=== PATIENT | female | born 1985 | race Caucasian/White ===

== ENCOUNTER → 2019-04-11 | Outpatient (CLI) | payer BC ==
[2019-04-11 18:50] LABS: FREE T4 0.79 NG/DL (0.76-1.46)
[2019-04-11 22:42] LABS: CHLAMYDIA DNA AMPLIFICATION NEGATIVE (NEGATIVE); GC DNA AMPLIFICATION NEGATIVE (NEGATIVE)
[2019-04-12 11:26] LABS: HEPATITIS C VIRUS ABY INDEX 0.1 INDEX (<0.8); HIV 1&2 SCREEN CENTAUR NEGATIVE (NEGATIVE)
== END ==
LOC: M SMT 15:45
PROVIDERS: ATTEND Advanced Practice Midwife
DX: Z36.89 Encounter for other specified antenatal screening (principal); Z3A.00 Weeks of gestation of pregnancy not specified

== ENCOUNTER → 2019-05-16 | Outpatient (CLI) | payer BC ==
--- NOTE | 2019-05-16 17:29 | REP ---
REASON: Assess for growth. I have no priors for comparison. Multiple ultrasonographic images of the gravid uterus show a single living intrauterine gestation in the cephalic presentation. Doppler interrogation of the heart shows a heart rate of 161 beats per minute. The placenta is anterior and not low lying. The subjective amniotic fluid volume is within normal limits. Doppler interrogation of the umbilical artery shows an AB ratio of 2.33. This is within the normal range. The cervix measures 3.9 cm in length and is closed. Evaluation of the maternal adnexal space showed no abnormalities. The placenta is seen to be anterior and not low lying. BPD 8.7 cm 35 weeks 1 day. HC 31.3 cm 35 weeks 0 days. AC 30.8 cm 34 weeks 5 days. FL 6.6 cm 34 weeks 0 days. The estimated weight is 2472 grams which is at the 52nd percentile for a 34 week 2 days gestational age. The calculated amniotic fluid index is 12.0 with an expected range 8.0 to 24.8. The fetus was too large for a complete anatomical screen. Limited evaluation of the fetus for anatomy showed spine, kidneys, urinary bladder, three vessel umbilical cord, cord insertion, stomach, four chamber heart and intracranial contents to have normal appearance. facial features particularly the upper lip was not adequately identified. The right ventricular outflow track could not be adequately identified. The upper and lower extremities could not be confirmed as normal. IMPRESSION:Single living intrauterine gestation as described above with an estimated gestational age of 34 weeks 4 days via composite criteria and an estimated date of delivery of 06/23/2019. The anatomical screen could not be completed due to the large gestational age, however, structures seen within normal limits are discussed above. Electronically Signed by Ernie Vicente DO 05/16/2019 06:02 P
== END ==
LOC: M RAD 14:20
PROVIDERS: ATTEND Advanced Practice Midwife
DX: O99.13 Other diseases of the blood and blood-forming organs and certain disorders involving the immune mechanism complicating the puerperium (principal); Z36.89 Encounter for other specified antenatal screening; D68.61 Antiphospholipid syndrome; Z3A.34 34 weeks gestation of pregnancy

== ENCOUNTER → 2019-05-20 | Outpatient (REF) | payer BC | LOC: M LAB REF 18:15 | PROVIDERS: ATTEND Advanced Practice Midwife | DX: O99.113 Other diseases of the blood and blood-forming organs and certain disorders involving the immune mechanism complicating pregnancy, third trimester (principal); Z3A.00 Weeks of gestation of pregnancy not specified ==

== ENCOUNTER 2019-06-19 05:30 | Inpatient (IN) | payer BC ==
[2019-06-19] VITALS (8 sets, daily range): BP systolic 95–120; BP diastolic 51–75
[~2019-06-19] VITALS: Ht 170.2 cm; Wt 102.0 kg
[~2019-06-19 05:30] MED LIST: HEPA100I26 SQ; HEPA1INJ8 SC; IRON325T2 PO; PREN200C PO; VITA250T18 PO; [UNRECOGNIZED DRUG - CODE] SQ
[2019-06-19] MEDS ORDERED: LR 800 ML IV ONE (05:45)
[2019-06-19] MEDS ORDERED: BICITRA 30ML SOLN UDC PO ONE (05:45)
[2019-06-19 06:14] LABS: MEAN CORPUSCULAR HEMOGLOBIN 32.4 pg (27.0-33.0); MEAN CORPUSCULAR HGB CONC 34.3 g/dl (32.0-36.5); MEAN CORPUSCULAR VOLUME 94.6 fl (80.0-96.0); PLATELET COUNT, AUTOMATED 168 10^3/uL (150-450); WHITE BLOOD COUNT 8.8 10^3/uL (4.0-10.0)
[2019-06-19] MEDS ORDERED: LR 1,000 ML IV SCH ×2 (06:15→10:00)
[2019-06-19] MEDS ORDERED: NALOXONE INJ 0.4 MG/1 ML VIAL (J2310) IV PRN ×2 (07:45)
[2019-06-19] MEDS ORDERED: METOCLOPRAMIDE INJ 10MG/2ML VIAL (J2765) IV PRN (07:45)
[2019-06-19] MEDS ORDERED: NALBUPHINE HCL 10 MG/ML AMP (J2300) IV PRN (07:45)
[2019-06-19] MEDS ORDERED: diphenhydrAMINE INJ 50MG/ML VIAL (J1200) IV PRN (07:45)
[2019-06-19] MEDS ORDERED: ONDANSETRON 4MG/2ML VIAL (J2405) IV PRN ×3 (07:45→09:30)
[2019-06-19] MEDS ORDERED: OXYTOCIN 30 UNITS IN 0.9% NaCl 500ML IV BAG (J2590) As Ordered ONE (08:55)
[2019-06-19] MEDS ORDERED: MEASLES,MUMPS,RUBELLA VACCINE INJ (MMR-II) (90707) SC SCH (09:00)
[2019-06-19] MEDS ORDERED: PERCOCET 5MG/325MG TAB PO PRN ×2 (09:00)
[2019-06-19] MEDS ORDERED: OXYTOCIN DRIP 30 UNITS in APPROPRIATE DILUENT 1 EA IV SCH (09:00)
[2019-06-19] MEDS: PRENATAL VITAMINS CHEWABLE TABLET PO SCH (09:00)
[2019-06-19] MEDS ORDERED: RHOGAM 300 MCG (1500 IU) INJ (J2790) IM SCH (09:00)
[2019-06-19] MEDS ORDERED: OXYC1TAB23 PO (09:26)
[2019-06-19] MEDS ORDERED: fentaNYL 100 MCG/2 ML INJECTION (J3010) IV PRN (09:30)
[2019-06-19] MEDS: KETOROLAC 30 MG/ML VIAL (J1885) IV SCH ×3 (09:37→22:31)
[2019-06-19] MEDS ORDERED: KETOROLAC 30 MG/ML VIAL (J1885) As Ordered ONE (09:37)
[2019-06-19] MEDS ORDERED: SLF 3 ML SYR IV PRN (16:45)
[2019-06-19] MEDS ORDERED: DOCUSATE SODIUM 100 MG CAP PO PRN (21:00)
[2019-06-19] MEDS: SLF 3 ML SYR IV SCH (22:32)
[2019-06-20 02:00] VITALS: BP 98/56
[2019-06-20 05:29] VITALS: BP 95/52
[2019-06-20] MEDS: SLF 3 ML SYR IV SCH (06:40)
[2019-06-20 07:02] LABS: HEMATOCRIT 22.3 % (36.0-47.0); MEAN CORPUSCULAR HEMOGLOBIN 33.3 pg (27.0-33.0); MEAN CORPUSCULAR HGB CONC 33.6 g/dl (32.0-36.5); MEAN CORPUSCULAR VOLUME 99.1 fl (80.0-96.0); PLATELET COUNT, AUTOMATED 155 10^3/uL (150-450); RED BLOOD COUNT 2.25 10^6/uL (4.00-5.40); WHITE BLOOD COUNT 13.2 10^3/uL (4.0-10.0)
[2019-06-20 07:07] LABS: HEMOGLOBIN 7.5 g/dl (12.0-15.5)
--- NOTE | 2019-06-20 07:43 | IPNPDOC ---
Text Note Date of Service The patient was seen on 06/20/19. NOTE Note POD#1 s/p scheduled PLTCS S: Pain well controlled, ambulating without difficulty, tolerating regular diet, voiding spontaneously, lochia decreasing/minimal. No headache, sob, chest pain, nausea/vomiting/fevers/chills. Some lightheadedness over night with ambulation. O: normal HR, afebrile, somewhat hypotensive at times ABD: soft, nontender, nondistended, fundus firm at U, dressing dry and intact Ext: no lower extremity edema bilaterally, negative Jaden's sign A/P: POD#1. Recovering well. Hemodynamically stable, afebrile, good pain control. Encourage PO fluid intake, warning signs of hypotension discussed. -Routine care -Anticipate d/c to home tomorrow. VS,Fishbone, I+O VS, Fishbone, I+O Laboratory Tests 06/20/19 06:46 Red Blood Count 2.25 L, Mean Corpuscular Volume 99.1 H, Mean Corpuscular Hemoglobin 33.3 H, Mean Corpuscular Hemoglobin Concent 33.6, Red Cell Distribution Width 14.2 Vital Signs Date Time Temp Pulse Resp B/P (MAP) Pulse Ox O2 Delivery O2 Flow Rate FiO2 06/20/19 05:29 98.6 97 18 95/52 (66) 06/19/19 22:16 98 I&O- Last 24 Hours up to 6 AM 06/20/19 05:59 Intake Total 5401 ml Output Total 2000 ml Balance 3401 ml GME ATTESTATION GME ATTESTATION My faculty preceptor for this patient encounter was physically present during the encounter and was fully available. All aspects of the patient interview, examination, medical decision making process, and medical care plan development were reviewed and approved by the faculty preceptor. The faculty preceptor is aware and concurs with the plan as stated in the body of this note and will attest to such by his/her cosignature. MIRA MISHRA DO Jun 20, 2019 07:42
--- NOTE | 2019-06-20 08:52 | RO ---
DATE OF PROCEDURE: 06/19/2019 PREPROCEDURE DIAGNOSIS: 39 weeks, prior section times one, undesired fertility. POSTPROCEDURE DIAGNOSIS: 39 weeks, prior section times one, undesired fertility. PROCEDURE: Repeat low transverse section and bilateral tubal ligation. SURGEON: Dr. Tavon Pérez ETCHER HAND: Ivette Curtis CNM ANESTHESIA: Spinal. ESTIMATED BLOOD LOSS: 600 mL. URINE OUTPUT: 500 mL. IV FLUIDS: 1700 mL lactated Ringer's. FINDINGS: 7 pound and 10 ounce or 3450 gram female infant, Apgars 8 and 9, vertex position. Normal uterus, fallopian tubes and ovaries. DESCRIPTION OF PROCEDURE: The patient was taken to the operating room where spinal anesthesia was induced. She was prepped and draped in sterile fashion in the supine position. A Gardiner catheter was placed. A Pfannenstiel skin incision was made with the scalpel and carried through to the fascia. The fascia was nicked and extended. The fascia was dissected off the rectus muscles. The peritoneal cavity was entered. A bladder flap was created. A curvilinear incision was made in the lower uterine segment until bulging membranes were noted. This was extended manually. Membranes were ruptured with clear fluid. The was delivered from the vertex position without difficulty. The cord was doubly clamped and cut. The infant was handed off to the awaiting nurses. The placenta was expressed. The uterus was cleared of clots and debris. The uterine incision was closed with #0 Vicryl in a running locked fashion. A second imbricating layer of #0 Vicryl was placed. Attention was turned to the fallopian tubes. The fallopian tubes were grasped at their mid portion with a Montague clamp. A window was created in the broad ligament. A free tie of #3-0 chromic suture was placed around a segment of tube on either side of the José clamp. A knuckle of tube was excised bilaterally. The peritoneum was with #2-0 Vicryl in a running fashion. The fascia was closed with #0 Vicryl in a running fashion. The deep layer was irrigated and closed with #3-0 chromic. The skin was closed with #4-0 Monocryl subcuticular sutures. Sponge, instrument and needle counts were correct. Ivette Curtis CNM, assisted throughout the procedure. She helped create all layers of the incision. She helped expel the fetus. She helped with the tubal ligation and closure of all subsequent layers.
[2019-06-20] MEDS ORDERED: INFLUENZA QUADRIVALENT PF VACCINE 0.5ML SYRINGE (90686) IM ONE (09:00)
[2019-06-20] MEDS ORDERED: ADACEL/BOOSTRIX VACCINE (DIPHTH/PERTUSS/ACELL/TETANUS)0.5ML SYR (90715) IM ONE (09:00)
[2019-06-20] MEDS: PRENATAL VITAMINS CHEWABLE TABLET PO SCH (09:23)
[2019-06-20 10:00] VITALS: BP 114/69
[2019-06-20] MEDS: IBUPROFEN 800 MG TAB PO SCH ×2 (11:04→19:21)
[2019-06-20 14:00] VITALS: BP 115/54
[2019-06-20 17:44] VITALS: BP 117/65
[2019-06-20 22:00] VITALS: BP 100/56
[2019-06-21 02:00] VITALS: BP 104/59
[2019-06-21] MEDS: IBUPROFEN 800 MG TAB PO SCH ×2 (03:00→10:50)
[2019-06-21 06:00] VITALS: BP 108/59
[2019-06-21] MEDS ORDERED: ENOX40IN3 SC (07:25)
[2019-06-21] MEDS: PRENATAL VITAMINS CHEWABLE TABLET PO SCH (09:00)
[2019-06-21] MEDS ORDERED: INFLUENZA QUADRIVALENT PF VACCINE 0.5ML SYRINGE (90686) IM ONE (11:00)
--- NOTE | 2019-06-21 18:05 | DSES ---
DATE OF ADMISSION: 06/19/2019 DATE OF DISCHARGE: 06/21/2019 DISCHARGE DIAGNOSIS: 1. Repeat low transverse section, satisfied parity. PROCEDURES PERFORMED WHILE IN THE HOSPITAL: 1. Repeat low transverse section. 2. Bilateral tubal ligation. 3. Spinal anesthesia. Mitzy is a 34-year-old G4 now para 3-1-0-4, who presented to labor and delivery at 39 +1 weeks estimated gestational age for repeat low transverse section and bilateral tubal ligation. She underwent an uncomplicated repeat low transverse section productive of a live born female , score 8 and 9. 7 pounds, 10 ounces or 3450 grams. Estimated blood loss 600 mL. She did well postoperatively; and by day #2, had met all discharge criteria. She was discharged home in stable condition. PHYSICAL EXAMINATION: On day of discharge, her vital signs were stable. She was afebrile. GENERAL APPEARANCE: Well appearing, no acute distress. ABDOMEN: Soft, appropriately tender fundus that is firm below the umbilicus. INCISION: Dressing is dry and intact. EXTREMITIES: Negative for calf tenderness. DISCHARGE INSTRUCTIONS: 1. She was instructed to remain on pelvic rest for 6 weeks. 2. To remove her dressing in 5-7 days. 3. Report severe pain, heavy vaginal bleeding, fever or incisional issues. DISCHARGE MEDICATIONS: - Percocet - Lovenox 40 mg subcutaneous daily - vitamin C. - vitamins. - iron. FOLLOWUP: [facility] in 2 weeks for incision check.
== END 2019-06-21 11:22 | disposition home or self-care (01) | DRG 540 ==
LOC: M LDI 05:30 → M OBS 10:59
PROVIDERS: ADMIT Specialist; ATTEND Specialist
PROC: 0UB70ZZ Excision of Bilateral Fallopian Tubes, Open Approach (ICD-10-PCS; 2019-06-19)
PROC: 10D00Z1 Extraction of Products of Conception, Low, Open Approach (ICD-10-PCS; principal; 2019-06-19 07:30)
DX: O34.211 Maternal care for low transverse scar from previous cesarean delivery (principal); Z3A.39 39 weeks gestation of pregnancy; Z37.0 Single live birth; Z30.2 Encounter for sterilization

== ENCOUNTER → 2019-08-24 | Outpatient (REF) | payer BC ==
[~2019-08-24] MED LIST changes: +ENOX40IN3 SC; +OXYC1TAB23 PO
== END ==
LOC: M LAB REF 10:17
PROVIDERS: ATTEND Physician Assistant
DX: N39.0 Urinary tract infection, site not specified (principal)

== ENCOUNTER → 2020-03-24 | Outpatient (REF) | payer OTHER | LOC: M PLALAB 11:38 | PROVIDERS: ATTEND Specialist | DX: O00.90 Unspecified ectopic pregnancy without intrauterine pregnancy (principal) ==

== ENCOUNTER → 2020-03-25 | Outpatient (CLI) | payer OTHER ==
--- NOTE | 2020-03-25 23:27 | REP ---
EMERGENCY FIRST TRIMESTER OBSTETRIC SONOGRAPHY: HISTORY: Rule out ectopic. Status post tubal. FINDINGS: Transabdominal and transvaginal scanning are performed. Uterine dimensions are enlarged at 11.4 x 7.1 x 8.6 cm. There are several uterine myometrial fibroids measuring 1.7, 0.8, and 1.5 cm in greatest diameter, respectively. There is an intrauterine gestational sac with mean sac size diameter of 6.9 mm. This corresponds with a 5-week 3-day gestational age estimate. There is a yolk sac but no embryonic pole. The right ovary has overall dimensions of 4.5 x 2.3 x 2.5 cm. There is a 2.2 x 1.6 x 1.8 cm hypoechoic area in the right ovary. No free fluid is seen. Left ovary measures 3.0 x 2.1 x 2.8 cm. Doppler flow is present in both ovaries. Resistive indices are 0.50 on the right and 0.70 on the left. IMPRESSION: 1. There is evidence of an intrauterine gestational sac containing a yolk sac but no embryonic pole, 5 weeks 3 days by mean sac size diameter. 2. There are several apparent uterine fibroids. These are small. 3. No free fluid is seen in the cul-de-sac. 4. There is a 2.2 cm hypoechoic area in the right ovary, which may be hemorrhagic corpus luteum. Electronically Signed by Mendoza Rollins MD 03/26/2020 07:57 A
== END ==
LOC: M RAD 16:21
PROVIDERS: ATTEND Specialist
DX: O34.11 Maternal care for benign tumor of corpus uteri, first trimester (principal); Z3A.00 Weeks of gestation of pregnancy not specified

== ENCOUNTER → 2020-03-25 | Outpatient (CLI) | payer OTHER | LOC: M PLALAB 12:01 | PROVIDERS: ATTEND Specialist | DX: O00.90 Unspecified ectopic pregnancy without intrauterine pregnancy (principal) ==

== ENCOUNTER → 2021-02-12 | Outpatient (REF) | payer BC ==
[2021-02-12 15:47] LABS: HEMATOCRIT 36.2 % (36.0-47.0); MEAN CORPUSCULAR HEMOGLOBIN 25.1 pg (27.0-33.0); MEAN CORPUSCULAR HGB CONC 30.4 g/dl (32.0-36.5); MEAN CORPUSCULAR VOLUME 82.6 fl (80.0-96.0); PLATELET COUNT, AUTOMATED 224 10^3/uL (150-450); RED BLOOD COUNT 4.38 10^6/uL (4.00-5.40); WHITE BLOOD COUNT 7.6 10^3/uL (4.0-10.0)
== END ==
LOC: M PLALAB 13:11
PROVIDERS: ATTEND Specialist
DX: N92.0 Excessive and frequent menstruation with regular cycle (principal)

== ENCOUNTER → 2021-02-28 | Outpatient (CLI) | payer OTHER, BC ==
[~2021-02-28] MED LIST changes: +ESTA0.25
== END ==
LOC: M LABSMTC 08:27
PROVIDERS: ATTEND Anesthesiology
DX: Z01.812 Encounter for preprocedural laboratory examination (principal); Z11.52 Encounter for screening for COVID-19

== ENCOUNTER 2021-03-05 11:36 | Day surgery (SDC) | payer BC ==
[~2021-03-05] VITALS: Ht 170.2 cm; Wt 91.3 kg
[~2021-03-05 11:36] MED LIST changes: +LR 1,000 ML IV ONE; +ceFAZolin SOD 2 GM in IV 1 EA IV ONE
[2021-03-05] MEDS ORDERED: LIDOCAINE 2% 100MG/5ML SDV (FOR ANES.) As Ordered ONE (11:55)
[2021-03-05] MEDS ORDERED: fentaNYL 250 MCG/5 ML INJECTION (J3010) As Ordered ONE (11:55)
[2021-03-05] MEDS ORDERED: ROCURONIUM BROMIDE 50 MG/5 ML VIAL As Ordered ONE ×2 (11:55→13:54)
[2021-03-05] MEDS ORDERED: ONDANSETRON 4MG/2ML VIAL As Ordered ONE (11:55)
[2021-03-05] MEDS ORDERED: MIDAZOLAM INJ 2MG/2ML VIAL (J2250 PER 1MG) As Ordered ONE (11:55)
[2021-03-05] MEDS ORDERED: propofoL 200 MG/20 ML VIAL As Ordered ONE (11:55)
[2021-03-05] MEDS ORDERED: dexameTHASONE 4 MG/ML 1ML VIAL (J1100 PER 1MG) As Ordered ONE (11:55)
[2021-03-05 12:14] LABS: HEMATOCRIT 36.6 % (36.0-47.0); HEMOGLOBIN 11.2 g/dl (12.0-15.5); MEAN CORPUSCULAR HEMOGLOBIN 24.9 pg (27.0-33.0); MEAN CORPUSCULAR HGB CONC 30.6 g/dl (32.0-36.5); MEAN CORPUSCULAR VOLUME 81.3 fl (80.0-96.0); PLATELET COUNT, AUTOMATED 251 10^3/uL (150-450); WHITE BLOOD COUNT 5.9 10^3/uL (4.0-10.0)
[2021-03-05] MEDS ORDERED: BUPIVACAINE HCL 0.25% 10ML VIAL As Ordered ONE (12:47)
[2021-03-05] MEDS ORDERED: SCOPOLAMINE 1MG TRANSDERMAL PATCH TOP ONE (13:00)
[2021-03-05] MEDS ORDERED: ACETAMINOPHEN 1000MG 100ML IV BTL (OFIRMEV) (J0131 PER 10MG) As Ordered ONE (13:28)
[2021-03-05] MEDS ORDERED: METOCLOPRAMIDE INJ 10MG/2ML VIAL (J2765 PER 1) As Ordered ONE (13:28)
[2021-03-05] MEDS ORDERED: HYDROmorphone HCL 2 MG/ML 1ML VIAL (J1170) As Ordered ONE (13:49)
[2021-03-05] MEDS ORDERED: KETOROLAC 60MG 2ML VIAL As Ordered ONE (13:49)
[2021-03-05] MEDS ORDERED: SUGAMMADEX SODIUM 500 MG/5 ML VIAL (BRIDION) As Ordered ONE (13:49)
--- NOTE | 2021-03-05 14:56 | ROOPDOC ---
[facility] Report Of Operation Report of Operation DATE OF PROCEDURE: 03/05/21 OPERATIVE REPORT: Preoperative diagnosis: Menorrhagia. Postoperative diagnosis: Same. Procedure: Robotic-assisted laparoscopic hysterectomy, cystoscopy. Surgeon: Fernanda Munguia M.D. Building Surveyor: Nina Weir NP Findings: Normal uterus, surgically absent fallopian tubes, normal ovaries. Omental adhesions to anterior abdominal wall. EBL: 150 mL's. Urine output: 200 mL's. Operative summary: Patient was taken to the operating room where general endotracheal anesthesia was induced. She was prepped and draped in sterile fashion in the dorsal lithotomy position. A Gardiner Catheter was placed. A V care uterine manipulator was placed. A Periumbilical incision was made with a scalpel. . A Veress needle was placed through this incision. Intra-abdominal location of Veress needle was assessed with saline filled syringe. A pneumoperitoneum was created. The Veress needle was removed. An 8 mm trocar using the Visiport was inserted through this incision. Three 8 mm suprapubic ports were placed under direct visualization The patient was placed in Trendelenburg position. The da Lavonne surgical robot was docked to the ports. Using the fenestrated bipolar instrument and vessel sealer, the utero-ovarian and broad ligaments were coagulated and incised. The round ligaments were coagulated and incised. The anterior and posterior leaves of the broad ligament were . Bladder flap was created. The uterine vessels were coagulated and incised using monopolar Endo Megan. A colpotomy was created in the upper vagina at the level of the V care Cup. The specimen including the uterus and cervix was removed through the vagina. The vaginal cuff was closed with #1 V lock suture in running fashion. Cystoscopy was performed using a 70 cystoscope. Bilateral ureteral jets were identified. No evidence of injury to the bladder. The cystoscope was removed. All instruments removed. The skin was closed with 4-0 Monocryl subcuticular sutures. Nina Weir NP assisted with all aspects of the procedure. She helped position the patient. She helped insert the ports and manipulate the uterus. She removed the specimen. FERNANDA MUNGUIA MD Mar 05, 2021 14:56
[2021-03-05] MEDS ORDERED: OXYC1TAB23 PO (14:57)
[2021-03-05] MEDS ORDERED: IBUP-1022 PO (14:59)
[2021-03-05] MEDS ORDERED: fentaNYL 100 MCG/2 ML INJECTION (J3010) IV PRN (15:00)
[2021-03-05] MEDS ORDERED: oxyCODONE 5MG TAB PO PRN (15:00)
[2021-03-05] MEDS ORDERED: LR 1,000 ML IV SCH ×2 (15:00→15:05)
[2021-03-05] MEDS ORDERED: HYDROMORPHONE HCL 0.5 MG/ 0.5 ML SYRINGE (J1170 PER 1) IV PRN (15:00)
[2021-03-05] MEDS ORDERED: METOCLOPRAMIDE INJ 10MG/2ML VIAL (J2765 PER 1) IV PRN (15:00)
[2021-03-05] MEDS ORDERED: ONDANSETRON 4MG/2ML VIAL IV PRN ×2 (15:00→15:20)
[2021-03-05] MEDS ORDERED: PERCOCET 5MG/325MG TAB PO PRN ×2 (15:05→15:10)
[2021-03-05] MEDS ORDERED: MORPHINE 4 MG/ML 1ML VIAL/SYRINGE (J2270) IV PRN (15:05)
[2021-03-05] MEDS ORDERED: KETOROLAC 30 MG/ML 1ML VIAL IV PRN (15:20)
[2021-03-05 15:35] VITALS: BP 132/82
[2021-03-05] MEDS ORDERED: DOCUSATE SODIUM 100MG CAPSULE PO SCH (21:00)
== END 2021-03-05 17:55 | disposition home or self-care (01) ==
LOC: M SDC 11:36
PROVIDERS: ATTEND Specialist
DX: D25.9 Leiomyoma of uterus, unspecified (principal); N80.0 Endometriosis of uterus; N88.8 Other specified noninflammatory disorders of cervix uteri; N72 Inflammatory disease of cervix uteri; N73.6 Female pelvic peritoneal adhesions (postinfective)
CPT/HCPCS: 36415; 58570; 85027; 86850; 86900; 86901; 88307; J0131; J0690; J1100; J1170; J1885; J2250; J2405; J2765; J3010; S2900

== ENCOUNTER → 2021-04-29 | Outpatient (REF) | payer BC ==
[~2021-04-29] MED LIST changes: +IBUP-1022 PO; -LR 1,000 ML IV ONE; -ceFAZolin SOD 2 GM in IV 1 EA IV ONE
[2021-04-29 12:53] LABS: BASO # 0.1 10^3/uL (0.0-0.2); BASO % 1.1 % (0.0-1.0); EOS # 0.2 10^3/uL (0.0-0.5); EOS % 3.4 % (0.0-3.0); HEMATOCRIT 40.4 % (36.0-47.0); HEMOGLOBIN 12.2 g/dl (12.0-15.5); LYMPH # 1.2 10^3/uL (1.5-5.0); LYMPH % 22.1 % (24.0-44.0); MEAN CORPUSCULAR HEMOGLOBIN 25.5 pg (27.0-33.0); MEAN CORPUSCULAR HGB CONC 30.2 g/dl (32.0-36.5); MEAN CORPUSCULAR VOLUME 84.3 fl (80.0-96.0); MONO # 0.4 10^3/uL (0.0-0.8); MONO % 7.1 % (2.0-8.0); NEUTROPHILS # 3.7 10^3/uL (1.5-8.5); NEUTROPHILS % 65.9 % (36.0-66.0); PLATELET COUNT, AUTOMATED 220 10^3/uL (150-450); RED BLOOD COUNT 4.79 10^6/uL (4.00-5.40); WHITE BLOOD COUNT 5.6 10^3/uL (4.0-10.0)
[2021-04-29 13:24] LABS: ALBUMIN 4.1 GM/DL (3.2-5.2); ALT/SGPT 25 U/L (12-78); BILIRUBIN,TOTAL 0.3 MG/DL (0.2-1.0); BLOOD UREA NITROGEN 19 MG/DL (7-18); CALCIUM LEVEL 9.4 MG/DL (8.5-10.1); CARBON DIOXIDE LEVEL 28 MEQ/L (21-32); CHLORIDE LEVEL 108 MEQ/L (98-107); CHOLESTEROL LEVEL 183 MG/DL (<200); CHOLESTEROL RISK RATIO 4.463 (<5); FERRITIN 10 NG/ML (8-252); GLOMERULAR FILTRATION RATE > 60.0 (>60); GLUCOSE, FASTING 90 MG/DL (70-100); HDL CHOLESTEROL 41 MG/DL (>40); IRON (FE) 103 UG/DL (50-170); LDL CHOLESTEROL 126 MG/DL (<100); NON-HDL-C 142 MG/DL; PERCENT SATURATION 25.1 % (13.2-45.0); POTASSIUM SERUM 4.4 MEQ/L (3.5-5.1); SODIUM LEVEL 140 MEQ/L (136-145); TOTAL IRON BINDING CAPACITY 410 UG/DL (250-450); TOTAL PROTEIN 7.5 GM/DL (6.4-8.2); TRIGLYCERIDES LEVEL 78 MG/DL (<150)
[2021-04-29 13:26] LABS: TOTAL 25(OH) VITAMIN D 26.2 NG/ML (30.0-100.0)
[2021-04-29 13:27] LABS: FOLATE 9.8 NG/ML; VITAMIN B12 LEVEL 454 PG/ML
== END ==
LOC: M SFHCADAM 08:12
PROVIDERS: ATTEND Physician Assistant Medical
DX: D68.61 Antiphospholipid syndrome (principal); D64.9 Anemia, unspecified; Z13.220 Encounter for screening for lipoid disorders

== ENCOUNTER → 2023-03-20 | Outpatient (REF) | payer BC ==
[2023-03-21 06:08] LABS: HEPATITIS B CORE ANTIBODY IGG Negative (Negative); HERPES ZOSTER, VARICELLA IgG >4000 index (Immune >165)
== END ==
LOC: M SFHCADAM 10:32
PROVIDERS: ATTEND Physician Assistant Medical
DX: Z01.84 Encounter for antibody response examination (principal)

== ENCOUNTER → 2024-02-13 | Outpatient (CLI) | payer OTHER | LOC: M ADAMS 09:31 | PROVIDERS: ATTEND Physician Assistant Medical | DX: M79.671 Pain in right foot (principal) ==

== ENCOUNTER → 2024-11-29 | Outpatient (REF) | payer OTHER ==
[2024-11-29 14:37] LABS: ALBUMIN 4.1 G/DL (3.2-5.2); ALKALINE PHOSPHATASE 60 U/L (35-104); ALT/SGPT 26 U/L (7.0-40); AST/SGOT 12 U/L (<34); BILIRUBIN,TOTAL 0.6 MG/DL (0.3-1.2); BLOOD UREA NITROGEN 20 MG/DL (9-23); CALCIUM LEVEL 9.1 MG/DL (8.5-10.1); CARBON DIOXIDE LEVEL 25 MMOL/L (20-31); CHLORIDE LEVEL 107 MMOL/L (98-107); CHOLESTEROL LEVEL 165 MG/DL (<200); CHOLESTEROL RISK RATIO 3.95 (<5); GLOMERULAR FILTRATION RATE > 60.0 (>58); GLUCOSE, FASTING 94 MG/DL (60-100); HDL CHOLESTEROL 41.7 MG/DL (>40); LDL CHOLESTEROL 104.7 MG/DL (<100); NON-HDL-C 123.3 MG/DL; POTASSIUM SERUM 4.4 MMOL/L (3.5-5.1); SODIUM LEVEL 141 MMOL/L (136-145); TOTAL PROTEIN 7.2 G/DL (5.7-8.2); TRIGLYCERIDES LEVEL 93 MG/DL (<150)
[2024-11-29 14:39] LABS: BASO # 0.1 10^3/uL (0.0-0.2); EOS # 0.1 10^3/uL (0.0-0.5); EOS % 1.3 % (0.0-3.0); FREE T4 1.09 NG/DL (0.89-1.76); HEMATOCRIT 44.5 % (36.0-47.0); HEMOGLOBIN 14.7 g/dl (12.0-15.5); LYMPH # 1.6 10^3/uL (1.5-5.0); LYMPH % 26.3 % (24.0-44.0); MEAN CORPUSCULAR HEMOGLOBIN 30.7 pg (27.0-33.0); MEAN CORPUSCULAR VOLUME 92.9 fl (80.0-96.0); MONO # 0.6 10^3/uL (0.0-0.8); MONO % 9.4 % (2.0-8.0); NEUTROPHILS # 3.7 10^3/uL (1.5-8.5); NEUTROPHILS % 61.5 % (36.0-66.0); PLATELET COUNT, AUTOMATED 169 10^3/uL (150-450); RED BLOOD COUNT 4.79 10^6/uL (4.00-5.40); THYROID STIMULATING HORMONE 4.722 uIU/ML (0.55-4.78)
== END ==
LOC: M SFHCADAM 07:48
PROVIDERS: ATTEND Physician Assistant Medical
DX: Z00.00 Encounter for general adult medical examination without abnormal findings (principal); Z28.21 Immunization not carried out because of patient refusal; D68.61 Antiphospholipid syndrome; Z13.220 Encounter for screening for lipoid disorders; Z13.0 Encounter for screening for diseases of the blood and blood-forming organs and certain disorders involving the immune mechanism

== ENCOUNTER → 2024-11-29 | Outpatient (CLI) | payer OTHER | LOC: M WHC 12:28 | PROVIDERS: ATTEND Physician Assistant Medical | DX: Z12.31 Encounter for screening mammogram for malignant neoplasm of breast (principal); R92.30 Dense breasts, unspecified ==

== ENCOUNTER 2024-12-19 11:28 | Day surgery (SDC) | payer OTHER ==
[~2024-12-19] VITALS: Ht 170.2 cm; Wt 96.2 kg
[~2024-12-19 11:28] MED LIST changes: +LR 1,000 ML IV SCH; +OMEG10002 PO
[2024-12-19] MEDS ORDERED: fentaNYL 100 MCG/2 ML INJECTION As Ordered ONE (12:12)
[2024-12-19] MEDS ORDERED: LIDOCAINE 2% 100MG/5ML SDV (FOR ANES.) As Ordered ONE (12:12)
[2024-12-19] MEDS ORDERED: propofoL 200 MG/20 ML VIAL As Ordered ONE (12:12)
[2024-12-19] MEDS ORDERED: MIDAZOLAM INJ 2MG/2ML VIAL As Ordered ONE (12:12)
[2024-12-19] MEDS: ceFAZolin SOD 2 GM IV ONCE IV ONE (13:05)
[2024-12-19] MEDS ORDERED: KETOROLAC 30 MG/ML 1ML VIAL As Ordered ONE (13:10)
[2024-12-19] MEDS: ceFAZolin SODIUM 2 GM VIAL As Ordered ONE (13:11)
[2024-12-19] MEDS: BUPivacaine LIPOSOME/PF 266MG 20ML VIAL (13.3MG/ML)(EXPAREL) As Ordered ONE (13:28)
[2024-12-19 14:10] VITALS: BP 128/70; TEMP 97.9; O2SAT 97
== END 2024-12-19 14:12 | disposition home or self-care (01) ==
LOC: M SDC 11:28
PROVIDERS: ATTEND Surgery
DX: D17.21 Benign lipomatous neoplasm of skin and subcutaneous tissue of right arm (principal)
CPT/HCPCS: 23077; 88304; J0665; J0666; J0690; J1885; J2250; J3010

== ENCOUNTER → 2025-09-27 | Outpatient (REF) | payer BC ==
[~2025-09-27] MED LIST changes: -IBUP-1022 PO; +IBUP600T42 PO; -LR 1,000 ML IV SCH
== END ==
LOC: M LAB REF 15:50
PROVIDERS: ATTEND Physician Assistant Medical
DX: B34.9 Viral infection, unspecified (principal)